=== PATIENT | female | born 1975 | race Caucasian/White ===

== ENCOUNTER 2021-12-18 08:22 | Outpatient (CLI) | payer OTHER, SELFPAY ==
--- NOTE | ~2021-12-18 | XR_ITS ---
XR_[id number]_CR 12/18/2021 08:57 Indication: Numbness and tingling in the left arm Procedure: 4 views of the cervical spine Comparison: No prior studies for comparison. Findings: Straightening of cervical lordosis. No prevertebral soft tissue swelling. Vertebral body he ights are maintained. There is mild disc narrowing at C4-5 and C5-6. No listhesis. There is uncinate hypertrophy at C4-5 and C5-6. No fracture or traumatic malalignment. Impression: 1: Mild-moderate cervical spondylosis. Reviewed, dictated and finalized at location B. Impression: 1: Mild-moderate cervical spondylosis.
[2021-12-18 09:04] LABS: Alanine Aminotransferase 7 U/L (6-35); Alkaline Phosphatase 84 U/L (38-126); Anion Gap 8 mmol/L (8-16); Aspartate Amino Transferase 18 U/L (14-36); Bilirubin,Total 0.7 mg/dL (0.2-1.3); Blood Urea Nitrogen 10 mg/dL (7-17); Calcium 8.9 mg/dL (8.4-10.2); Carbon Dioxide 26 mmol/L (22-30); Chloride 103 mmol/L (98-107); Cholesterol 187 mg/dL (0-200); Estimated Glomerular Filt Rate > 60; Glucose 100 mg/dL (65-110); HDL Direct 58 mg/dL; Sodium 137 mmol/L (137-145); Triglycerides 73 mg/dL (<150)
[2021-12-18 09:15] LABS: LDL Cholesterol Direct 98 mg/dL
[2021-12-18 09:32] LABS: Hemoglobin A1C 4.9 % (<5.7)
== END 2021-12-18 08:23 | disposition home or self-care (01) ==
LOC: ANHLAB 08:23
PROVIDERS: PCP Family Medicine; Visit Provider Family Medicine
DX: Z13.1 Encounter for screening for diabetes mellitus (principal); Z13.228 Encounter for screening for other metabolic disorders; Z13.220 Encounter for screening for lipoid disorders; Z13.29 Encounter for screening for other suspected endocrine disorder; M54.9 Dorsalgia, unspecified; M47.812 Spondylosis without myelopathy or radiculopathy, cervical region
CPT/HCPCS: 36415; 72040; 80053; 80061; 83036; 84443

== ENCOUNTER 2022-01-01 16:16 | Outpatient (CLI) | payer OTHER, SELFPAY ==
--- NOTE | ~2022-01-01 | MR_ITS ---
EXAMINATION: MR cervical spine wo con DATE: 01/01/2022 17:20 INDICATION: Neck pain. Paresthesias. TECHNIQUE: Magnetic resonance imaging (MRI) of the cervical spine was performed without intravenous c ontrast. Sequences included sagittal T2-weighted FSE, sagittal T2-weighted FS FSE, sagittal T1-weight ed FSE, axial MERGE, and axial T2-weighted FSE. COMPARISON: Cervical spine radiographs 12/18/21 FINDINGS: There is kyphosis of cervical spine. There is levoscoliosis of upper thoracic spine. Verteb ral body heights are normal. There is moderately decreased disc height at C4-C5 and C5-C6 and mildly decreased disc height at C6-C7. The spinal cord signal intensity is normal. The following disc levels are specifically discussed: C2-C3: The disc does not extend beyond the endplate margin. There is no uncovertebral joint osteoarth ritis. There is no facet joint osteoarthritis. There is no neural foraminal stenosis. There is no yvrose tral canal stenosis. C3-C4: There is a central protrusion. There is mild bilateral uncovertebral joint osteoarthritis. The re is mild left facet joint osteoarthritis. There is no neural foraminal stenosis. There is mild cent ral canal stenosis. C4-C5: The disc is bulging. There is severe bilateral uncovertebral joint osteoarthritis. There is no facet joint osteoarthritis. There is mild bilateral neural foraminal stenosis. There is mild central canal stenosis. C5-C6: The disc is bulging. There is severe bilateral uncovertebral joint osteoarthritis. There is no facet joint osteoarthritis. There is moderate right and mild left neural foraminal stenosis. There i s mild central canal stenosis. C6-C7: The disc is bulging. There is moderate bilateral uncovertebral joint osteoarthritis. There is mild bilateral facet joint osteoarthritis. There is mild bilateral neural foraminal stenosis. There i s mild central canal stenosis. C7-T1: The disc does not extend beyond the endplate margin. There is no uncovertebral joint osteoarth ritis. There is mild right and moderate left facet joint osteoarthritis. There is no neural foraminal stenosis. There is no central canal stenosis. IMPRESSION: 1. Moderate cervical spondylosis. Reviewed, dictated and finalized at location A.
== END 2022-01-01 16:17 | disposition home or self-care (01) ==
PROVIDERS: PCP Family Medicine; Visit Provider Family Medicine
DX: R20.2 Paresthesia of skin (principal); M47.813 Spondylosis without myelopathy or radiculopathy, cervicothoracic region; M48.03 Spinal stenosis, cervicothoracic region
CPT/HCPCS: 72141

== ENCOUNTER 2022-05-14 09:16 | Outpatient (CLI) | payer OTHER, SELFPAY ==
[2022-05-14 19:52] LABS: Basophils Absolute Auto 0.1 K/mm3 (0.0-0.1); Basophils Percent Auto 2.3 % (0.2-1.2); Eosinophils Absolute Auto 0.2 K/mm3 (0-0.3); Eosinophils Percent Auto 2.8 % (0-4.4); Hematocrit 30.3 % (37.0-47.0); Hemoglobin 7.5 g/dL (12.0-15.0); Immature Granulocyte Absolute 0.02 K/mm3 (0.00-0.031); Immature Granulocyte Percent A 0.4 % (0-0.5); Immature Platelet Fraction Pct 4.5 % (0.9-11.2); Lymphocytes Absolute Auto 1.44 K/mm3 (0.9-3.2); Lymphocytes Percent Auto 27.1 % (18.3-44.2); Mean Corpuscular HGB Conc 24.8 g/dl (32-36); Mean Corpuscular Hemoglobin 16.5 pg (26-34); Mean Corpuscular Volume 66.7 fl (80-100); Mean Platelet Volume 10.5 fl (7.4-10.4); Monocytes Absolute Auto 0.4 K/mm3 (0.1-0.6); Neutrophils Absolute Auto 3.2 K/mm3 (1.3-6.7); Neutrophils Percent Auto 60.4 % (45.5-73.1); Platelet Count Result 400 k/mm3 (150-375); Red Blood Count 4.54 M/mm3 (4.2-5.4); Red Cell Distribution Width 20.6 % (11.5-14.5); White Blood Count 5.3 K/mm3 (4.5-10.0)
[2022-05-14 20:19] LABS: Hypochromasia 1+ (NORMAL); Platelet Estimate Increased (Adequate); Schistocytes None Seen (NORMAL)
[2022-05-14 20:20] LABS: Anisocytosis 3+ (NORMAL); Iron 17 ug/dL (37-170)
[2022-05-14 20:30] LABS: Percent Iron Saturation 3 % (20-50)
[2022-05-14 20:42] LABS: Vitamin D 25 Hydroxy 32.4 ng/mL
[2022-05-14 20:57] LABS: Ferritin 3.12 ng/mL (6.24-137)
[2022-05-14 22:01] LABS: Folic Acid 9.1 ng/mL (2.76->20)
== END 2022-05-14 09:17 | disposition home or self-care (01) ==
LOC: ANHGOSHLAB 09:18
PROVIDERS: PCP Family Medicine; Visit Provider Family Medicine
DX: R53.83 Other fatigue (principal); K13.0 Diseases of lips; Z98.84 Bariatric surgery status; Z86.2 Personal history of diseases of the blood and blood-forming organs and certain disorders involving the immune mechanism
CPT/HCPCS: 36415; 82306; 82607; 82728; 82746; 83540; 83550; 85025; 85055

== ENCOUNTER → 2022-07-24 14:43 | Outpatient (CLI) | payer OTHER, SELFPAY ==
--- NOTE | ~2022-07-24 | MM_ITS ---
EXAMINATION: MM screening carrie BI w abilio HISTORY: Screening TECHNIQUE: Craniocaudal and mediolateral oblique 3-D tomosynthesis images were obtained and synthetic 2-D images were generated. CAD analysis was submitted and interpreted. COMPARISON: Comparison to multiple prior studies sequentially, with oldest reviewed study dated 09/27. BREAST PARENCHYMAL COMPOSITION: Breast composed of scattered areas of fibroglandular density FINDINGS: There is no evidence of suspicious mass, calcification, or architectural distortion to sugg est malignancy in either breast. There has been no suspicious interval change. IMPRESSION: 1. No mammographic evidence of malignancy. 2. Recommend routine screening mammography in one year. BI-RADS Category 1: Negative Reviewed, dictated and finalized at location A.
== END ==
PROVIDERS: PCP Family Medicine; Visit Provider Obstetrics & Gynecology
DX: Z12.31 Encounter for screening mammogram for malignant neoplasm of breast (principal)
CPT/HCPCS: 77063; 77067

== ENCOUNTER 2022-10-01 08:26 | Outpatient (CLI) | payer OTHER, SELFPAY ==
[2022-10-01 10:13] LABS: Prothrombin Time 13.3 Seconds (11.1-14.7)
[2022-10-01 10:14] LABS: Partial Thromboplastin Time 29.2 SECONDS (22.3-36.8)
[2022-10-01 18:43] LABS: Alanine Aminotransferase 12 U/L (6-35); Albumin Level 4.1 g/dL (3.5-5.1); Alkaline Phosphatase 97 U/L (38-126); Anion Gap 6 mmol/L (8-16); Aspartate Amino Transferase 27 U/L (14-36); Bilirubin,Total 0.6 mg/dL (0.2-1.3); Blood Urea Nitrogen 11 mg/dL (7-17); CRP 0.6 mg/dL (<1.0); Calcium 8.8 mg/dL (8.4-10.2); Carbon Dioxide 29 mmol/L (22-30); Chloride 106 mmol/L (98-107); Cholesterol 219 mg/dL (0-200); Estimated Glomerular Filt Rate > 60; Glucose 83 mg/dL (65-110); HDL Direct 61 mg/dL; Potassium 4.1 mmol/L (3.4-5.0); Sodium 141 mmol/L (137-145); Triglycerides 119 mg/dL (<150)
[2022-10-01 18:47] LABS: Rheumatoid Factor < 12.0 IU/ML (<12)
[2022-10-01 18:54] LABS: LDL Cholesterol Direct 130 mg/dL
[2022-10-01 19:02] LABS: Iron 49 ug/dL (37-170)
[2022-10-01 19:11] LABS: Percent Iron Saturation 11 % (20-50)
[2022-10-01 19:27] LABS: Basophils Percent Auto 0.2 % (0.2-1.2); Eosinophils Absolute Auto 0.2 K/mm3 (0-0.3); Eosinophils Percent Auto 3.7 % (0-4.4); Hematocrit 39.4 % (37.0-47.0); Hemoglobin 11.7 g/dL (12.0-15.0); Immature Granulocyte Absolute 0.01 K/mm3 (0.00-0.031); Immature Granulocyte Percent A 0.2 % (0-0.5); Lymphocytes Absolute Auto 1.34 K/mm3 (0.9-3.2); Lymphocytes Percent Auto 27.2 % (18.3-44.2); Mean Corpuscular HGB Conc 29.7 g/dl (32-36); Mean Corpuscular Hemoglobin 24.1 pg (26-34); Mean Corpuscular Volume 81.2 fl (80-100); Monocytes Absolute Auto 0.4 K/mm3 (0.1-0.6); Monocytes Percent Auto 7.9 % (2.6-8.5); Neutrophils Percent Auto 60.8 % (45.5-73.1); Platelet Count Result 313 k/mm3 (150-375); Red Blood Count 4.85 M/mm3 (4.2-5.4); Red Cell Distribution Width 15.2 % (11.5-14.5); White Blood Count 4.9 K/mm3 (4.5-10.0)
[2022-10-01 19:52] LABS: Hypochromasia 1+ (NORMAL); Platelet Estimate Adequate (Adequate)
[2022-10-01 19:53] LABS: Anisocytosis 1+ (NORMAL); Poikilocytosis 1+ (NORMAL); Schistocytes None Seen (NORMAL)
[2022-10-01 20:02] LABS: Erythrocyte Sedimentation Rate 21 mm/hr (0-20)
== END 2022-10-01 08:27 | disposition home or self-care (01) ==
LOC: ANHGOSHLAB 08:28
PROVIDERS: PCP Family Medicine; Visit Provider Family Medicine
DX: R53.83 Other fatigue (principal); M25.50 Pain in unspecified joint; Z13.228 Encounter for screening for other metabolic disorders; Z13.220 Encounter for screening for lipoid disorders; R23.3 Spontaneous ecchymoses; D50.9 Iron deficiency anemia, unspecified
CPT/HCPCS: 36415; 80053; 80061; 82728; 83540; 83550; 85025; 85610; 85652; 85730; 86140; 86430

== ENCOUNTER → 2023-01-21 15:24 | Outpatient (CLI) | payer OTHER, SELFPAY ==
--- NOTE | ~2023-01-21 | XR_ITS ---
XR shoulder LT min 2V DATE: 01/21/2023 15:44 INDICATION: Left shoulder injury, pain TECHNIQUE: 4 views COMPARISON: None FINDINGS: There is diffuse osteopenia. No fracture or dislocation, periosteal reaction or bone destr uction. Degenerative disc disease of cervical spine. Levoscoliosis of the thoracic spine. IMPRESSION: Osteopenia Reviewed, dictated and finalized at location A. IMPRESSION: Osteopenia
== END ==
PROVIDERS: PCP Family Medicine; Visit Provider Family Medicine
DX: S49.92XA Unspecified injury of left shoulder and upper arm, initial encounter (principal); M25.512 Pain in left shoulder; M85.88 Other specified disorders of bone density and structure, other site
CPT/HCPCS: 73030

== ENCOUNTER 2023-02-19 11:15 | Outpatient (RCR) | payer OTHER, SELFPAY ==
[2023-01-25 13:17] VITALS: BP_SYST 120
--- NOTE | 2023-01-25 15:27 | OPREHPOC ---
Outpatient Therapy Plan of Care This is a Multidisciplinary Plan of Care that may contain components documented by all disciplines (PT, OT, and ST.) PT Problem 1 PT Problem #1 Knowledge Deficit PT Goal 1 Goal Pt to be IND with issued HEP Target Visit 8 PT Problem 2 PT Problem #2 Impaired Range of Motion PT Goal 1 Goal Pt to improve active shoulder flexion from 95 deg to 150 deg Target Visit 8 PT Goal 2 Goal Pt to improve active shoulder abduction ROM from 82 deg to 150 deg Target Visit 8 PT Problem 3 PT Problem #3 Impaired Strength PT Goal 1 Goal Pt to demonstrates L shoulder strength equal to her R shoulder strength Target Visit 8 PT Goal 2 Goal Pt to be able to lift and carry 20lb from ground level Target Visit 8 PT Problem 4 PT Problem #4 Pain PT Goal 1 Goal Pt to report shoulder pain no greater than 3/10 in the last week Target Visit 8 PT Goal 2 Goal Pt to report 75% improvement in overall symptoms Target Visit 8
--- NOTE | 2023-01-25 15:27 | PTOPEVAL1 ---
Assessment and note entered by Moses Cameron, PT, DPT Evaluation Information Assessment Status Evaluation Diagnosis L shoulder pain Onset Dec 08 Subjective Information Pt describes her pain as excruciating, she states it pops and it will take her breath away. She declines a LI but states she knows it started on Dec 08. She states she was putting on a backpack and was unable to lift her own. She states sleeping is difficultly. She rates her pain at 0/10 at rest, and a quick and intense pain when she moves the wrong way that gets to a 8/10. She does reports stiffness in her neck, she states in the last week or so her hand has started to have some numbness and tingling. 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 Reported Pain Level Pain Score 0: Self Report Assessment PT Clinical Summary Odilia presents to therapy today for her initial evaluation with a diagnosis of L shoulder pain. Today she demonstrates significant ROM and strength deficits when compared to her R shoulder. Her active L shoulder ROM is currently 95 deg of flexion and 82 deg of abduction. Her strength is limited by pain. She is currently unable to reach over her head. Skilled therapy services are indicated to improve ROM and strength, to manage, and to return to PLOF. Plan of Care Interventions Electrical Stimulation,Hot Pack/Cold Pack,Manual Therapy,Neuro Re-education,Patient/Caregiver Educati,Therapeutic Activities,Therapeutic Exercise PT Services Indicated Yes Treatment Frequency and 1x/wk for 4 visits Duration These treatments will address the objective and functional deficits as defined above. The patient will be advanced safely and appropriately in order for the patient to progress towards his/her prior level of function. Additional exercises will be introduced and as well as a comprehensive home exercise program upon discharge, if needed, ?to ensure carryover of functional gains achieved in the clinic. This treatment plan has been reviewed and agreement upon by the patient.
--- NOTE | 2023-02-25 16:09 | PTOPDC ---
Assessment and note entered by Moses Cameron, PT, DPT Evaluation Information Assessment Status Discharge - Pt Not Present Diagnosis L shoulder pain Onset Dec 08 Subjective Information Pt did not show for her scheduled appointment. Called and spoke with pt to follow up. She states she is not getting any better. Recommended that pt call her provider and discuss the next steps. Assessment PT Clinical Summary Odilia completed 4 visits of skilled therapy from 01/25/23 to 02/19/23. She will be discharged at this time per request.
== END 2023-02-26 08:31 | disposition home or self-care (01) ==
LOC: ANHGOSHPT 11:15
PROVIDERS: PCP Family Medicine; Visit Provider Family Medicine
DX: M25.512 Pain in left shoulder (principal)
CPT/HCPCS: 97110; 97140; 97161; 99199

== ENCOUNTER 2023-03-11 11:27 | Outpatient (CLI) | payer OTHER, SELFPAY ==
[2023-03-11 18:43] LABS: Iron 80 ug/dL (37-170)
[2023-03-11 18:55] LABS: Percent Iron Saturation 23 % (20-50)
[2023-03-11 19:32] LABS: Basophils Percent Auto 0.2 % (0.2-1.2); Eosinophils Absolute Auto 0.3 K/mm3 (0-0.3); Eosinophils Percent Auto 3.9 % (0-4.4); Hematocrit 43.9 % (37.0-47.0); Hemoglobin 13.8 g/dL (12.0-15.0); Immature Granulocyte Absolute 0.02 K/mm3 (0.00-0.031); Immature Granulocyte Percent A 0.3 % (0-0.5); Lymphocytes Absolute Auto 1.83 K/mm3 (0.9-3.2); Lymphocytes Percent Auto 27.6 % (18.3-44.2); Mean Corpuscular HGB Conc 31.4 g/dl (32-36); Mean Corpuscular Hemoglobin 29.4 pg (26-34); Mean Corpuscular Volume 93.4 fl (80-100); Mean Platelet Volume 11.4 fl (7.4-10.4); Monocytes Absolute Auto 0.5 K/mm3 (0.1-0.6); Monocytes Percent Auto 6.9 % (2.6-8.5); Neutrophils Absolute Auto 4.1 K/mm3 (1.3-6.7); Neutrophils Percent Auto 61.1 % (45.5-73.1); Platelet Count Result 294 k/mm3 (150-375); Red Cell Distribution Width 12.9 % (11.5-14.5); White Blood Count 6.6 K/mm3 (4.5-10.0)
== END 2023-03-11 11:28 | disposition home or self-care (01) ==
LOC: ANHGOSHLAB 11:29
PROVIDERS: PCP Family Medicine; Visit Provider Family Medicine
DX: D50.9 Iron deficiency anemia, unspecified (principal); R53.83 Other fatigue
CPT/HCPCS: 36415; 82728; 83540; 83550; 85025

== ENCOUNTER 2023-07-09 13:34 | Outpatient (CLI) | payer OTHER, SELFPAY ==
[2023-07-09 16:26] LABS: Basophils Percent Auto 0.2 % (0.2-1.2); Eosinophils Absolute Auto 0.2 K/mm3 (0-0.3); Eosinophils Percent Auto 3.3 % (0-4.4); Hematocrit 45.4 % (37.0-47.0); Hemoglobin 14.3 g/dL (12.0-15.0); Immature Granulocyte Absolute 0.02 K/mm3 (0.00-0.031); Immature Granulocyte Percent A 0.3 % (0-0.5); Lymphocytes Absolute Auto 1.61 K/mm3 (0.9-3.2); Lymphocytes Percent Auto 27.8 % (18.3-44.2); Mean Corpuscular HGB Conc 31.5 g/dl (32-36); Mean Corpuscular Hemoglobin 29.1 pg (26-34); Mean Corpuscular Volume 92.3 fl (80-100); Mean Platelet Volume 11.6 fl (7.4-10.4); Monocytes Absolute Auto 0.3 K/mm3 (0.1-0.6); Monocytes Percent Auto 5.7 % (2.6-8.5); Neutrophils Absolute Auto 3.6 K/mm3 (1.3-6.7); Neutrophils Percent Auto 62.7 % (45.5-73.1); Platelet Count Result 287 k/mm3 (150-375); Red Blood Count 4.92 M/mm3 (4.2-5.4); Red Cell Distribution Width 13.4 % (11.5-14.5); White Blood Count 5.8 K/mm3 (4.5-10.0)
[2023-07-09 16:33] LABS: Iron 67 ug/dL (37-170)
[2023-07-09 16:42] LABS: Percent Iron Saturation 20 % (20-50)
== END 2023-07-09 13:35 | disposition home or self-care (01) ==
LOC: ANHGOSHLAB 13:36
PROVIDERS: PCP Family Medicine; Visit Provider Family Medicine
DX: R53.83 Other fatigue (principal); D50.9 Iron deficiency anemia, unspecified
CPT/HCPCS: 36415; 82728; 83540; 83550; 85025

== ENCOUNTER 2023-07-26 08:14 | Emergency (ER) | payer OTHER, SELFPAY ==
--- NOTE | ~2023-07-26 | XR_ITS ---
XR chest 2V 07/26/2023 08:58 Indication: Left lateral rib pain Procedure: 2 view chest Comparison: 10/18/2007 Findings: Heart size normal. No focal air space disease, pulmonary edema, pleural effusion or suspect ed pneumothorax. There is scoliosis. Impression: 1: No acute cardiopulmonary disease. Reviewed, dictated and finalized at location B. Impression: 1: No acute cardiopulmonary disease.
--- NOTE | ~2023-07-26 | XR_ITS ---
XR shoulder LT min 2V 07/26/2023 08:59 Indication: Left shoulder pain Procedure: 4 views left shoulder Comparison: 01/21/2023 Findings: There is osteoarthritis of the left glenohumeral joint. No fracture, subluxation or disloca tion. No significant soft tissue abnormality. Impression: 1: Mild left glenohumeral joint osteoarthritis. Reviewed, dictated and finalized at location B. Impression: 1: Mild left glenohumeral joint osteoarthritis.
[2023-07-26 08:24] VITALS: BP 141/87; PULSE 82; RESP 16; TEMP 36.4; O2SAT 100
--- NOTE | 2023-07-26 09:52 | ED.FALL ---
HPI - Fall General Chief Complaint: Fall Stated Complaint: fall on wednesday-chest and shoulder pain Time Seen by Provider: 07/26/23 08:27 History of Present Illness HPI Narrative: Pt slipped on rug and fell landing on left ribs and shoulder 3 days ago. Pt says she has trouble lifting her left arm beyond about 30 degrees and has pain in left lateral ribs that is not improving with motrin otc. Pt denies SOB. Pt says she has had some issues with left shoulder before and they were concerned about a partial rotator cuff injury but has never had an MRI. Related Data Allergies Allergy/AdvReac Type Severity Reaction Status Date / Time cephalexin Allergy Unknown Hives Verified 07/26/23 08:15 clindamycin Allergy Unknown hives Verified 07/26/23 08:15 codeine Allergy Unknown vomiting Verified 07/26/23 08:15 Penicillins AdvReac Intermediate Nausea and Verified 07/26/23 08:15 Vomiting Review of Systems Review of Systems: All systems reviewed & are unremarkable except as noted in HPI and below PMFSH Past Medical History Medical History Achilles tendinitis of left lower extremity Edema of both legs Exostosis of left posterior calcaneus Hair loss Retrocalcaneal bursitis Wears glasses Surgical History Surgical History History of ankle surgery Right ankle 1990 History of cholecystectomy 1998 History of tonsillectomy and adenoidectomy 1979 S/P gastric bypass 2000 Family History Family History Mother Family history of osteoporosis Family history of rheumatoid arthritis Family history of thyroid disease Family history of osteoarthritis Family history of lupus erythematosus Father Family history of thyroid disease Family history of arthritis Family history of scoliosis Dementia Other Autoimmune disease Breast cancer HLD (hyperlipidemia) Neuropathy Social History Social History Social History: caffeine- 2 cups coffee 1 soda daily Smoking status: Never smoker Alcohol intake: current Alcohol use details: occasionally Substance use: never Substance use type: does not use Do You Feel Safe in your Home?: Yes Lack of Transportation: No Lack of Food: Never True Current Housing: I Have Housing Concerned About Future Housing: No Difficulty Paying Gas/Electric Bills: No Difficulty Paying for Meds: No Currently Unemployed: No Education: Associate Degree Difficulty w/ Childcare or Family Care: No Occupation/Education: occupation 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 [employer] Gender identity (if verbalized by the patient): Female Spiritual care concerns: No Exam Const: General: healthy appearing Nutritional Appearance: well nourished Orientation/consciousness: patient oriented x3 Limitations: no limitations HENMT: Head: normal to inspection Neck: Neck: normal visual inspection Chest: Other: tender left mid lateral ribs t palpation no crepitance Resp: Effort & Inspection: normal respiratory effort Auscultation: clear to auscultation bilaterally Cardio: Rate: regular rate Rhythm: regular rhythm GI: GI Palp: Yes Soft to palpation Auscultation: normal bowel sounds Back/Spine/Pelvis: Back: no CVA tenderness Skin: General skin exam: normal color Rashes: no rashes Neuro: General: patient oriented x3, moves all extremities, no meningeal signs, no focal motor deficits and CN's II-XI intact bilaterally Cranial nerves: Yes Nystagmus not present Speech: normal speech Gait exam (Neuro): Normal gait present Extrem: General: normal to inspection Other: tender proximal humerus able to abduct shuyldr to 30 degrees only. Course Vital Signs Vital signs: Vital Signs Temperature
== END 2023-07-26 10:07 | disposition home or self-care (01) ==
PROVIDERS: Emergency Provider Emergency Medicine; PCP Family Medicine
DX: S49.92XA Unspecified injury of left shoulder and upper arm, initial encounter (principal); S20.212A Contusion of left front wall of thorax, initial encounter; Z90.49 Acquired absence of other specified parts of digestive tract; Z98.84 Bariatric surgery status; W01.0XXA Fall on same level from slipping, tripping and stumbling without subsequent striking against object, initial encounter
CPT/HCPCS: 71046; 73030; 99284

== ENCOUNTER 2023-10-15 08:30 | Outpatient (RCR) | payer OTHER, SELFPAY ==
--- NOTE | 2023-08-10 10:28 | PTOPEVAL1 ---
Assessment and note entered by Alfa Choudhury, PT Evaluation Information Assessment Status Evaluation Diagnosis Left shoulder pain, Adhesive capsulitis Onset 12/02/23 Subjective Information Reports that he had history of pain and tightness in shoulder starting last summer. Had a fall approximately 2 weeks ago and noticed increased pain and weakness. Went to see orthopedist and received cortisone injection. Feels that it has helped a lot at this time with mobility and pain. She has noticed improved functional and self care activity. No longer having pain at night and able to sleep on her left side. Reported Pain Level Pain Score 0: Self Report Assessment PT Clinical Summary Patient presents with signs and symptoms consistent with adhesive capsulitis. Will benefit from progressive therapy program to address ROM with transition into shoulder strengthening. Plan of Care Interventions Electrical Stimulation,Hot Pack/Cold Pack,Manual Therapy,Neuro Re-education,Therapeutic Activities, Therapeutic Exercise PT Services Indicated Yes Treatment Frequency and 2x/week for 8 visits Duration These treatments will address the objective and functional deficits as defined above. The patient will be advanced safely and appropriately in order for the patient to progress towards his/her prior level of function. Additional exercises will be introduced and as well as a comprehensive home exercise program upon discharge, if needed, ?to ensure carryover of functional gains achieved in the clinic. This treatment plan has been reviewed and agreement upon by the patient.
--- NOTE | 2023-08-10 10:28 | OPREHPOC ---
Outpatient Therapy Plan of Care This is a Multidisciplinary Plan of Care that may contain components documented by all disciplines (PT, OT, and ST.) PT Problem 1 PT Problem #1 Knowledge Deficit PT Goal 1 Goal [place] with HEP Target Visit 4 PT Problem 2 PT Problem #2 Pain PT Goal 1 Goal Report 0/10 pain with 5# lift over shoulder level Target Visit 8 PT Problem 3 PT Problem #3 Impaired Range of Motion PT Goal 1 Goal Improve L shoulder flexion ROM to 170 degrees to improve capsular reaching ability Target Visit 8 PT Goal 2 Goal Improve L shoulder external rotation ROM to 85 degrees to improve functional reaching ability Target Visit 8 PT Problem 4 PT Problem #4 Impaired Strength PT Goal 1 Goal Improve L shoulder girdle strength to 5/5 to improve stability with reach and ADL activity Target Visit 8
--- NOTE | 2023-09-07 08:45 | PTOPPROG ---
Assessment and note entered by Alfa Choudhury, PT Evaluation Information Assessment Status Discharge Diagnosis Left shoulder pain, Adhesive capsulitis Onset 12/02/23 Subjective Information Reports that overall she is doing a lot better. She followed up with orthopedic and was told to continue with therapy. Was confirmed by MD that he does not think that she needs surgery or another injection at this time. Follows back up with MD in 3-4 weeks. Still getting pain with reaching behind back and overhead. Trouble reaching far away from body. Assessment PT Clinical Summary Patient making excellent progress at this time. ROM has greatly improved but still has painful arc in flexion and abduction. Continues to show mild weakness and difficulty with dynamic activity. Will benefit from continuation of PT to address ROM deficits and functional reach ability moving forward. Plan of Care Interventions Electrical Stimulation,Hot Pack/Cold Pack,Manual Therapy,Neuro Re-education,Therapeutic Activities, Therapeutic Exercise PT Services Indicated Yes Treatment Frequency and 2x/week for 8 visits Duration These treatments will address the objective and functional deficits as defined above. The patient will be advanced safely and appropriately in order for the patient to progress towards his/her prior level of function. Additional exercises will be introduced and as well as a comprehensive home exercise program upon discharge, if needed, ?to ensure carryover of functional gains achieved in the clinic. This treatment plan has been reviewed and agreement upon by the patient.
--- NOTE | 2023-09-07 08:45 | OPREHPOC ---
Outpatient Therapy Plan of Care This is a Multidisciplinary Plan of Care that may contain components documented by all disciplines (PT, OT, and ST.) PT Problem 1 PT Problem #1 Knowledge Deficit PT Goal 1 Goal [place] with HEP Target Visit 4 Progress Met PT Problem 2 PT Problem #2 Pain PT Goal 1 Goal Report 0/10 pain with 5# lift over shoulder level Target Visit 16 Progress Partially Met PT Problem 3 PT Problem #3 Impaired Range of Motion PT Goal 1 Goal Improve L shoulder flexion ROM to 170 degrees to improve capsular reaching ability Target Visit 8 Progress Partially Met Comment ROM met but still painful PT Goal 2 Goal Improve L shoulder external rotation ROM to 85 degrees to improve functional reaching ability Target Visit 16 Progress Partially Met Comment Improved but lacking PT Problem 4 PT Problem #4 Impaired Strength PT Goal 1 Goal Improve L shoulder girdle strength to 5/5 to improve stability with reach and ADL activity Target Visit 16 Progress Partially Met
--- NOTE | 2023-10-15 10:50 | OPREHPOC ---
Outpatient Therapy Plan of Care This is a Multidisciplinary Plan of Care that may contain components documented by all disciplines (PT, OT, and ST.) PT Problem 1 PT Problem #1 Knowledge Deficit PT Goal 1 Goal [place] with HEP Target Visit 4 Progress Met PT Problem 2 PT Problem #2 Pain PT Goal 1 Goal Report 0/10 pain with 5# lift over shoulder level Target Visit 16 Progress Partially Met PT Problem 3 PT Problem #3 Impaired Range of Motion PT Goal 1 Goal Improve L shoulder flexion ROM to 170 degrees to improve capsular reaching ability Target Visit 8 Progress Met PT Goal 2 Goal Improve L shoulder external rotation ROM to 85 degrees to improve functional reaching ability Target Visit 16 Progress Partially Met Comment Significant improvement noted PT Problem 4 PT Problem #4 Impaired Strength PT Goal 1 Goal Improve L shoulder girdle strength to 5/5 to improve stability with reach and ADL activity Target Visit 16 Progress Partially Met
--- NOTE | 2023-10-15 10:50 | PTOPDC ---
Assessment and note entered by Alfa Choudhury, PT Evaluation Information Assessment Status Discharge Diagnosis Left shoulder pain, Adhesive capsulitis Onset 12/02/23 Subjective Information Reports that she is still having a little pain in the lateral shoulder. She noted the return of some popping which had went away. Still feels a little weak. Reports that she has been more active with the shoulder and has been painting overhead. Reported Pain Level Pain Score 0: Self Report Assessment PT Clinical Summary Patient made excellent progress with shoulder ROM and is currently functioning with full capable motion but is limited to some degree by pain. Still weakness noted in upper rotator cuff. 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 Suitable for discharge at this time. Plan of Care PT Services Indicated D/C to HEP
== END 2023-10-15 11:21 | disposition home or self-care (01) ==
LOC: ANHGOSHPT 08:30
PROVIDERS: PCP Family Medicine; Visit Provider Orthopaedic Surgery Sports Medicine
DX: M25.512 Pain in left shoulder (principal); M75.02 Adhesive capsulitis of left shoulder
CPT/HCPCS: 97110; 97112; 97140; 97161; 97530

== ENCOUNTER 2024-01-20 10:06 | Outpatient (CLI) | payer OTHER, SELFPAY ==
[2024-01-20 13:38] LABS: Basophils Percent Auto 0.9 % (0.2-1.2); Eosinophils Absolute Auto 0.1 K/mm3 (0-0.3); Eosinophils Percent Auto 2.1 % (0-4.4); Hematocrit 44.5 % (37.0-47.0); Hemoglobin 14.5 g/dL (12.0-15.0); Lymphocytes Absolute Auto 1.38 K/mm3 (0.9-3.2); Lymphocytes Percent Auto 32.3 % (18.3-44.2); Mean Corpuscular HGB Conc 32.6 g/dl (32-36); Mean Corpuscular Volume 92.1 fl (80-100); Mean Platelet Volume 11.3 fl (7.4-10.4); Monocytes Absolute Auto 0.3 K/mm3 (0.1-0.6); Neutrophils Absolute Auto 2.5 K/mm3 (1.3-6.7); Neutrophils Percent Auto 57.7 % (45.5-73.1); Platelet Count Result 252 k/mm3 (150-375); Red Blood Count 4.83 M/mm3 (4.2-5.4); Red Cell Distribution Width 12.4 % (11.5-14.5); White Blood Count 4.3 K/mm3 (4.5-10.0)
[2024-01-20 13:54] LABS: Alanine Aminotransferase 7 U/L (6-35); Albumin Level 4.3 g/dL (3.5-5.1); Alkaline Phosphatase 88 U/L (38-126); Anion Gap 4 mmol/L (4-12); Aspartate Amino Transferase 33 U/L (14-36); Bilirubin,Total 0.9 mg/dL (0.2-1.3); Blood Urea Nitrogen 6 mg/dL (7-17); Carbon Dioxide 29 mmol/L (22-30); Chloride 97 mmol/L (98-107); Estimated Glomerular Filt Rate > 60; Glucose 82 mg/dL (65-110); Potassium 3.9 mmol/L (3.4-5.0); Sodium 130 mmol/L (137-145)
[2024-01-20 14:49] LABS: Folic Acid 4.5 ng/mL (2.76->20)
[2024-01-20 15:08] LABS: Iron 82 ug/dL (37-170)
[2024-01-20 15:17] LABS: Percent Iron Saturation 26 % (20-50)
== END 2024-01-20 10:07 | disposition home or self-care (01) ==
LOC: ANHGOSHLAB 10:07
PROVIDERS: PCP Family Medicine; Visit Provider Family Medicine
DX: R53.83 Other fatigue (principal); D50.9 Iron deficiency anemia, unspecified; Z13.228 Encounter for screening for other metabolic disorders; D64.9 Anemia, unspecified
CPT/HCPCS: 36415; 80053; 82607; 82728; 82746; 83540; 83550; 85025

== ENCOUNTER 2024-01-27 12:40 | Outpatient (CLI) | payer OTHER, SELFPAY ==
[2024-01-27 16:40] LABS: Chloride 101 mmol/L (98-107); Potassium 3.8 mmol/L (3.4-5.0); Sodium 136 mmol/L (137-145)
[2024-01-27 16:41] LABS: Alanine Aminotransferase 8 U/L (6-35); Albumin Level 4.1 g/dL (3.5-5.1); Alkaline Phosphatase 85 U/L (38-126); Anion Gap 7 mmol/L (4-12); Aspartate Amino Transferase 48 U/L (14-36); Blood Urea Nitrogen 7 mg/dL (7-17); Calcium 8.9 mg/dL (8.4-10.2); Carbon Dioxide 28 mmol/L (22-30); Estimated Glomerular Filt Rate > 60; Glucose 86 mg/dL (65-110)
== END 2024-01-27 12:41 | disposition home or self-care (01) ==
LOC: ANHGOSHLAB 12:42
PROVIDERS: PCP Family Medicine; Visit Provider Family Medicine
DX: Z13.228 Encounter for screening for other metabolic disorders (principal)
CPT/HCPCS: 36415; 80053

== ENCOUNTER 2024-02-24 10:45 | Outpatient (CLI) | payer OTHER, SELFPAY ==
--- NOTE | ~2024-02-24 | MM_ITS ---
EXAMINATION: MM screening carrie BI w abilio HISTORY: Screening TECHNIQUE: Craniocaudal and mediolateral oblique 3-D tomosynthesis images were obtained and synthetic 2-D images were generated. CAD analysis was submitted and interpreted. COMPARISON: Comparison to multiple prior studies sequentially, with oldest reviewed study dated 03/04. BREAST PARENCHYMAL COMPOSITION: Not dense: There are scattered areas of fibroglandular density. FINDINGS: There is no evidence of suspicious mass, calcification, or architectural distortion to sugg est malignancy in either breast. There has been no suspicious interval change. IMPRESSION: 1. No mammographic evidence of malignancy. 2. Recommend routine screening mammography in one year. BI-RADS Category 1: Negative Reviewed, dictated and finalized at location B.
== END 2024-02-24 10:46 | disposition home or self-care (01) ==
PROVIDERS: PCP Family Medicine; Visit Provider Family Medicine
DX: Z12.31 Encounter for screening mammogram for malignant neoplasm of breast (principal)
CPT/HCPCS: 77063; 77067